=== PATIENT | female | born 1965 | race Two or more races ===

== ENCOUNTER 2018-11-02 10:26 | Inpatient (IN) | payer OTHER ==
[~2018-11-02] VITALS: Ht 160 cm; Wt 64.4 kg
[2018-11-02 10:40] VITALS: BP 132/79
--- NOTE | 2018-11-02 10:45 | NUR ---
ED Nurse Note: pt walked in to Ed due to wound on left hip. per pt, used to injected mineral oil for costmetic and got infected. has abscess on left hip for 4-5 months. had surgery 3 1/2 months ago. on home nursing care for wound. last one done on 5-6 days ago. due to insurance changes, unable to follow up with it. came with wound vac. foul smell noted. has a pain but tolerable. does not want to take pain meds. AAO x4. respirations even and non-labored noted. no fever or chills reported. will wait for the further order.
[2018-11-02] MEDS ORDERED: Piperacillin/Tazobactam 3.375 GM in NS 110 ML IVPB ONE (11:00)
[2018-11-02] MEDS ORDERED: Vancomycin 1 GM in NS 275 ML IV ONE (11:00)
[2018-11-02 11:26] LABS: BASOPHILS % (AUTO) 0.8 % (0.0-2.0); EOSINOPHILS % (AUTO) 2.8 % (0.0-3.0); HEMATOCRIT 41.4 % (37.0-47.0); HEMOGLOBIN 13.1 G/DL (12.0-16.0); LYMPHOCYTES % (AUTO) 21.7 % (20.0-45.0); MEAN CORPUSCULAR VOLUME 80 FL (80-99); MONOCYTES % (AUTO) 6.2 % (1.0-10.0); NEUTROPHILS % (AUTO) 68.6 % (45.0-75.0); PLATELET COUNT 277 K/UL (150-450); RED BLOOD COUNT 5.16 M/UL (4.20-5.40); RED CELL DISTRIBUTION WIDTH 12.7 % (11.6-14.8)
--- NOTE | 2018-11-02 11:36 | Emergency Room Report ---
History of Present Illness General Chief Complaint: Wound Recheck/Suture Removal Source: Patient Present Illness HPI Patient presents with left hip wound. She had surgery in May at [facility]. She had home wound care nurse that was canceled 6 days ago because of a change in insurance. She has a wound VAC. 2 months ago there was a separate abscess that burst. This is been draining. She has a change the dressing 3 times a day because of pus. She is not taking antibiotics that she was discharged from the hospital in May. She had a PICC line for several weeks and was receiving antibiotics by IV. This was discontinued. The patient denies any fevers or chills. 2 months ago she had increased pain and was unable to ambulate. This is improved with Tylenol. She is ambulatory at this time. She took Tylenol 2 days ago the last time. She also has a painful area of swelling R inner gluteal area. This hurts when she sits on it and when she wipes herself. The surgeon was initially going to drain this (in May) but then was not authorized to do so. She states the lesion initially occurred because she was injecting mineral oil into her skin. Patient denies hepatitis C or HIV. No fevers, chills, sore throat, chest pain, palpitations, nausea, vomiting, diarrhea, dysuria, abdominal pain, shortness of breath, pain, depression, anxiety, visual changes, headache. Her tetanus is current. Allergies: Coded Allergies: No Known Allergies (Unverified , 11/02/18) Patient History Past Medical History: see triage record Past Surgical History: other - Wound revision left hip Social History: Denies: smoking, alcohol use, drug use Social History Narrative Lives with partner born in [place] Last Menstrual Period: none Now: No Reviewed Nursing Documentation: PMH: Agreed; PSxH: Agreed Nursing Documentation-PMH Past Medical History: No Stated History Review of Systems All Other Systems: negative except mentioned in HPI Physical Exam Vital Signs Date Time Temp Pulse Resp B/P (MAP) Pulse Ox O2 Delivery O2 Flow Rate FiO2 11/02/18 10:34 98.4 86 20 132/79 (96) 99 Room Air Sp02 EP Interpretation: reviewed, normal General Appearance: well appearing, no apparent distress, GCS 15, non-toxic Head: normocephalic Eyes: bilateral eye normal inspection, bilateral eye PERRL, bilateral eye EOMI ENT: moist mucus membranes Neck: supple Respiratory: lungs clear, normal breath sounds Cardiovascular #1: regular rate, rhythm, no edema, other - venous disease LE Cardiovascular #2: 2+ radial (L) Gastrointestinal: normal inspection, normal bowel sounds, non tender, no mass, non-distended Genitourinary: no CVA tenderness, other - fluctuant area without erythema R inner gluteal area Musculoskeletal: back normal, gait/station normal, normal range of motion, no calf tenderness, pelvis stable, other - ROM normal of L hip Neurologic: alert, oriented x3, grossly normal Psychiatric: mood/affect normal Skin: other - L hip - wound vac present. Lesion below this draining, no fluctuance. Inflamed skin above that area Medical Decision Making Diagnostic Impression: Primary Impression: Abscess of left hip Additional Impressions: Cellulitis of left hip Gluteal seroma ER Course Patient presents with left hip infections. Differential includes abscess, cellulitis, chronic infection, osteomyelitis amongst others. Based on exam septic hip is doubted. Evaluation will be with EKG, chest x-ray, blood cultures , wound culture and labs. The patient agrees to take Tylenol. In addition to IV hydration will be started. After cultures obtained vancomycin and Zosyn will be given. Left hip with contrast is ordered. The right intergluteal lesion appears to be a seroma not an acute abscess however she is symptomatic with this. There is drainage that is significant from the lower left hip abscess. EKG without injury. Chest x-ray breast augmentation no infiltrates. Labs with normal white count however sedimentation rate and C-reactive protein are elevated. CMP unremarkable. CT without evidence of acute abscess however multiple injection granulomata. No evidence of osteomyelitis. Vancomycin and Zosyn begun. Patient needs admission for IV antibiotics and evaluation from revenue specialist. Contact and Dr. Quan. Insurance states will try to arrange for outpatient antibiotics and wound care. Patient improved and admitted to the hospital. Laboratory Tests Test 11/02/18 11:11 11/02/18 13:20 White Blood Count 7.0 K/UL (4.8-10.8) Red Blood Count 5.16 M/UL (4.20-5.40) Hemoglobin 13.1 G/DL (12.0-16.0) Hematocrit 41.4 % (37.0-47.0) Mean Corpuscular Volume 80 FL (80-99) Mean Corpuscular Hemoglobin 25.3 PG (27.0-31.0) L Mean Corpuscular Hemoglobin Concent 31.5 G/DL (32.0-36.0) L Red Cell Distribution Width 12.7 % (11.6-14.8) Platelet Count 277 K/UL (150-450) Mean Platelet Volume 6.2 FL (6.5-10.1) L Neutrophils (%) (Auto) 68.6 % (45.0-75.0) Lymphocytes (%) (Auto) 21.7 % (20.0-45.0) Monocytes (%) (Auto) 6.2 % (1.0-10.0) Eosinophils (%) (Auto) 2.8 % (0.0-3.0) Basophils (%) (Auto) 0.8 % (0.0-2.0) Erythrocyte Sedimentation Rate 88 MM/HR (0-30) H Prothrombin Time 10.4 SEC (9.30-11.50) Prothrombin Time INR 1.0 (0.9-1.1) PTT 30 SEC (23-33) Sodium Level 139 MMOL/L (136-145) Potassium Level 3.9 MMOL/L (3.5-5.1) Chloride Level 105 MMOL/L (98-107) Carbon Dioxide Level 28 MMOL/L (21-32) Anion Gap 6 mmol/L (5-15) Blood Urea Nitrogen 15 mg/dL (7-18) Creatinine 0.8 MG/DL (0.55-1.30) Estimate Glomerular Filtration Rate > 60 mL/min (>60) Glucose Level 108 MG/DL (74-106) H Lactic Acid Level 1.10 mmol/L (0.4-2.0) Calcium Level 9.1 MG/DL (8.5-10.1) Magnesium Level 2.1 MG/DL (1.8-2.4) Total Bilirubin 0.3 MG/DL (0.2-1.0) Aspartate Amino Transferase (AST) 24 U/L (15-37) Alanine Aminotransferase (ALT) 19 U/L (12-78) Alkaline Phosphatase 68 U/L (46-116) Total Creatine Kinase 57 U/L (26-308) Troponin I 0.000 ng/mL (0.000-0.056) C-Reactive Protein, Quantitative 5.1 mg/dL (0.00-0.90) H Pro-B-Type Natriuretic Peptide 125 pg/mL (0-125) Total Protein 8.2 G/DL (6.4-8.2) Albumin 3.1 G/DL (3.4-5.0) L Globulin 5.1 g/dL Albumin/Globulin Ratio 0.6 (1.0-2.7) L Urine Color Pale yellow Urine Appearance Clear Urine pH 7 (4.5-8.0) Urine Specific [place] 1.005 (1.005-1.035) Urine Protein Negative (NEGATIVE) Urine Glucose (UA) Negative (NEGATIVE) Urine Ketones Negative (NEGATIVE) Urine Blood Negative (NEGATIVE) Urine Nitrite Negative (NEGATIVE) Urine Bilirubin Negative (NEGATIVE) Urine Urobilinogen Normal MG/DL (0.0-1.0) Urine Leukocyte Esterase Negative (NEGATIVE) EKG Diagnostic Results Rate: normal Rhythm: NSR ST Segments: no acute changes Rhythm Strip Diag. Results EP Interpretation: yes Rhythm: NSR, no PVC's, no ectopy Chest X-Ray Diagnostic Results Chest X-Ray Diagnostic Results : Chest X-Ray Ordered: Yes # of Views/Limited/Complete: 1 View Indication: Other EP Interpretation: Yes Interpretation: no consolidation, no effusion, no pneumothorax Impression: No acute disease Electronically Signed by: Electronically signed by Jacques Resendez MD CT/MRI/US Diagnostic Results CT/MRI/US Diagnostic Results : Imaging Test Ordered: L hip Impression injection granulomata with chronic changes from wounds L. No Identified abscesses Last Vital Signs Date Time Temp Pulse Resp B/P (MAP) Pulse Ox O2 Delivery O2 Flow Rate FiO2 11/02/18 21:00 Room Air 11/02/18 20:00 98.6 72 18 119/63 (81 95 Status: improved Disposition: PLACE IN OBSERVATION Condition: Serious Scripts No Active Prescriptions or Reported Meds Referrals: ADRIANNE MATTSON,REFERRING (PCP) Jacques Resendez MD Nov 02, 2018 11:36
[2018-11-02 11:44] LABS: ANION GAP 6 mmol/L (5-15); BLOOD UREA NITROGEN 15 mg/dL (7-18); CALCIUM 9.1 MG/DL (8.5-10.1); CARBON DIOXIDE 28 MMOL/L (21-32); CHLORIDE 105 MMOL/L (98-107); CREATININE 0.8 MG/DL (0.55-1.30); POTASSIUM 3.9 MMOL/L (3.5-5.1); SODIUM 139 MMOL/L (136-145)
[2018-11-02 11:53] LABS: ALANINE AMINOTRANSFERASE 19 U/L (12-78); ALBUMIN 3.1 G/DL (3.4-5.0); ALBUMIN/GLOBULIN RATIO 0.6 (1.0-2.7); ALKALINE PHOSPHATASE 68 U/L (46-116); ASPARTATE AMINO TRANSFERASE 24 U/L (15-37); BILIRUBIN,TOTAL 0.3 MG/DL (0.2-1.0); CREATINE KINASE 57 U/L (26-308)
--- NOTE | 2018-11-02 12:00 | NUR ---
ED Nurse Note: pt lying in bed comfortably without facial grimacing or moaning noted. will wait for the room to be assigned.
--- NOTE | 2018-11-02 12:23 | Diagnostic Imaging Report ---
Indication: Dyspnea Comparison: None A single view chest radiograph was obtained. Findings: Cardiomediastinal appearance is within normal limits for age. The lungs are clear. Pulmonary vascularity is appropriate. The diaphragmatic contour is smooth and costophrenic angles are sharp. No pleural effusions are identified. The bones are unremarkable. Bilateral breast implants noted. Impression: No acute findings
[2018-11-02 13:30] VITALS: BP 121/77
--- NOTE | 2018-11-02 13:30 | NUR ---
ED Nurse Note: RN confirmed with Charge nurse that leave the wound vac as is. pic taken. will upload.
--- NOTE | 2018-11-02 13:44 | Diagnostic Imaging Report ---
Indication: Left hip drainage wound. Technique: continuous helical imaging in the transaxial plane was performed from the iliac crests to the pubic symphysis with attention to the left hip after intravenous nonionic contrast demonstration. Coronal 2-D reformatted images were also generated. Study obtained in a Siemens Sensation [address] total DLP: 615.2 mGycm CTD/vol: 11.69,14.38 mGy Comparison: None Findings: There is a large surgical defect along the left posterolateral gluteal region with a drain in place. There is extensive underlying heterogeneous soft tissue attenuation replacing the subcutaneous fatty tissue bilaterally. There are areas of intermixed high density that likely represent silicone. The findings suspicious for extensive foreign body granuloma formation in association with previous subcutaneous silicone injections. Please correlate with clinical history. There is no drainable abscess or fluid collection identified. There are bilateral inguinal nodes some containing high density. Within the pelvis itself, there is no free fluid or evidence of abscess. The osseous structures appear normal. There is no fracture identified. There is no joint effusion. There is no malalignment of the hips. IMPRESSION: Evidence of extensive bilateral gluteal region foreign body granuloma formation with multiple small radiopaque particles likely injected silica particles. No drainable abscess identified. Postsurgical defect noted on the left with a drain in place. The CT scanner at [facility] is accredited by the [employer] and the scans are performed using dose optimization techniques as appropriate to a performed exam including Automatic Exposure control.
[2018-11-02 13:49] LABS: APPEARANCE,URINE CLEAR; BILIRUBIN, URINE NEGATIVE (NEGATIVE); COLOR,URINE PALE YELLOW; GLUCOSE, URINE (UA) NEGATIVE (NEGATIVE); KETONES,URINE NEGATIVE (NEGATIVE); LEUKOCYTE ESTERASE ,URINE NEGATIVE (NEGATIVE); NITRITE,URINE NEGATIVE (NEGATIVE); PH,URINE 7 (4.5-8.0); PROTEIN,URINE NEGATIVE (NEGATIVE); UROBILINOGEN,URINE NORMAL MG/DL (0.0-1.0)
[2018-11-02] MEDS ORDERED: Albuterol/Ipratropium 3ml neb HHN PRN (14:15)
[2018-11-02] MEDS ORDERED: Dextrose 50% 25ml Syringe IV PRN (14:15)
[2018-11-02] MEDS ORDERED: Morphine Sulfate 2mg/ml Inj(IV/IM USE ONLY) IVP PRN (14:15)
[2018-11-02] MEDS ORDERED: Nitroglycerin Subl 0.4mg tab SL PRN (14:15)
[2018-11-02] MEDS ORDERED: Miralax 17gm pkt ORAL PRN (14:15)
--- NOTE | 2018-11-02 14:32 | NUR ---
report given to miah patient can be transferd to room 318-1 via [facility]
[2018-11-02 15:00] VITALS: BP 149/77
--- NOTE | 2018-11-02 15:00 | NUR ---
NURSE NOTES: Patient transferred from ED via Wheelchair, and received report from Jolly/RN, Patient is awake and alert, No sign of distress/SOB note. IV site intact, no bleeding or infiltration noted. Belonging check done. Patient stated having pain 4 out of 10. but refused to take pain medication. Bed in low position and locked, Call light and personal belonging within reach. Will continue plan of care.
[2018-11-02 16:00] VITALS: BP 118/76
--- NOTE | 2018-11-02 18:22 | Consultation ---
History of Present Illness General Date patient seen: Nov 02, 2018 Chief Complaint: Wound Recheck/Suture Removal Present Illness HPI 53 y/o F presented to ED on 11/02 with worsening L hip wound. Around May 2018, patient developed and ulcer after injecting mineral oil into her skin. She required surgery for this and was done at [facility]; discharge home with wound VAC and IV abx for several weeks through a pICC line; which were discontinued. She had home wound care but this was cancelled 6 days ago due to change in insurance. She has new area that popped (inferior to wound vac) and it is draining purulent material. She also had painful area of swelling in R inner gluteal area which hurts when she sits and when she wipes herself. Denied f/c,CP, n/v/d, abd pain. Allergies: Coded Allergies: No Known Allergies (Unverified , 11/02/18) Medication History No Active Prescriptions or Reported Meds Patient History Healthcare decision maker Resuscitation status Full Code Advanced Directive on File Patient History Narrative Pmhx: as above Shx: Denies: smoking, alcohol use, drug use. Lives with partner born in [place] Fhx: non contributory Review of Systems All Other Systems: negative except mentioned in HPI Physical Exam Physical Exam Narrative General Appearance: well appearing, no apparent distress, GCS 15 Head: normocephalic Eyes: bilateral eye normal inspection, bilateral eye PERRL, bilateral eye EOMI ENT: moist mucus membranes Neck: supple Respiratory: lungs clear, normal breath sounds Cardiovascular: regular rate, rhythm, no edema, other - venous disease LE Gastrointestinal: normal inspection, normal bowel sounds, non tender, no mass, non-distended Genitourinary: no CVA tenderness, other - fluctuant area without erythema R inner gluteal area Musculoskeletal: back normal, gait/station normal, normal range of motion, no calf tenderness, pelvis stable, other - ROM normal of L hip Neurologic: alert, oriented x3, grossly normal Psychiatric: mood/affect normal Skin: other - L hip - wound vac present. Lesion below this draining, no fluctuance. Inflamed skin above that area Last 24 Hour Vital Signs Date Time Temp Pulse Resp B/P (MAP) Pulse Ox O2 Delivery O2 Flow Rate FiO2 11/02/18 16:00 97.9 67 20 118/76 (90) 99 8/8/19 15:11 Room Air 11/02/18 15:00 97.9 70 24 149/77 (101) 99 11/02/18 14:34 98.2 76 18 120/70 98 Room Air 11/02/18 13:30 98.2 67 18 121/77 96 Room Air 11/02/18 10:45 86 20 Room Air 11/02/18 10:40 97.6 86 20 132/79 99 Room Air 11/02/18 10:34 98.4 86 20 132/79 (96) 99 Room Air Laboratory Tests Test 11/02/18 11:11 11/02/18 13:20 White Blood Count 7.0 K/UL (4.8-10.8) Red Blood Count 5.16 M/UL (4.20-5.40) Hemoglobin 13.1 G/DL (12.0-16.0) Hematocrit 41.4 % (37.0-47.0) Mean Corpuscular Volume 80 FL (80-99) Mean Corpuscular Hemoglobin 25.3 PG (27.0-31.0) L Mean Corpuscular Hemoglobin Concent 31.5 G/DL (32.0-36.0) L Red Cell Distribution Width 12.7 % (11.6-14.8) Platelet Count 277 K/UL (150-450) Mean Platelet Volume 6.2 FL (6.5-10.1) L Neutrophils (%) (Auto) 68.6 % (45.0-75.0) Lymphocytes (%) (Auto) 21.7 % (20.0-45.0) Monocytes (%) (Auto) 6.2 % (1.0-10.0) Eosinophils (%) (Auto) 2.8 % (0.0-3.0) Basophils (%) (Auto) 0.8 % (0.0-2.0) Erythrocyte Sedimentation Rate 88 MM/HR (0-30) H Prothrombin Time 10.4 SEC (9.30-11.50) Prothromb Time International Ratio 1.0 (0.9-1.1) Activated Partial Thromboplast Time 30 SEC (23-33) Sodium Level 139 MMOL/L (136-145) Potassium Level 3.9 MMOL/L (3.5-5.1) Chloride Level 105 MMOL/L (98-107) Carbon Dioxide Level 28 MMOL/L (21-32) Anion Gap 6 mmol/L (5-15) Blood Urea Nitrogen 15 mg/dL (7-18) Creatinine 0.8 MG/DL (0.55-1.30) Estimat Glomerular Filtration Rate > 60 mL/min (>60) Glucose Level 108 MG/DL (74-106) H Lactic Acid Level 1.10 mmol/L (0.4-2.0) Calcium Level 9.1 MG/DL (8.5-10.1) Magnesium Level 2.1 MG/DL (1.8-2.4) Total Bilirubin 0.3 MG/DL (0.2-1.0) Aspartate Amino Transf (AST/SGOT) 24 U/L (15-37) Alanine Aminotransferase (ALT/SGPT) 19 U/L (12-78) Alkaline Phosphatase 68 U/L (46-116) Total Creatine Kinase 57 U/L (26-308) Troponin I 0.000 ng/mL (0.000-0.056) C-Reactive Protein, Quantitative 5.1 mg/dL (0.00-0.90) H Pro-B-Type Natriuretic Peptide 125 pg/mL (0-125) Total Protein 8.2 G/DL (6.4-8.2) Albumin 3.1 G/DL (3.4-5.0) L Globulin 5.1 g/dL Albumin/Globulin Ratio 0.6 (1.0-2.7) L Urine Color Pale yellow Urine Appearance Clear Urine pH 7 (4.5-8.0) Urine Specific [place] 1.005 (1.005-1.035) Urine Protein Negative (NEGATIVE) Urine Glucose (UA) Negative (NEGATIVE) Urine Ketones Negative (NEGATIVE) Urine Blood Negative (NEGATIVE) Urine Nitrite Negative (NEGATIVE) Urine Bilirubin Negative (NEGATIVE) Urine Urobilinogen Normal MG/DL (0.0-1.0) Urine Leukocyte Esterase Negative (NEGATIVE) Height (Feet): 5 Height (Inches): 3.00 Weight (Pounds): 142 Medications Current Medications Medications (Trade) Dose Ordered Sig/[place] Route PRN Reason Start Time Stop Time Status Last Admin Dose Admin Acetaminophen (Tylenol) 650 mg Q4H PRN ORAL fever (temp > 100.5F) 11/02/18 14:15 12/02/18 14:14 Albuterol/ Ipratropium (Albuterol/ Ipratropium) 3 ml Q4H PRN HHN Shortness of Breath 11/02/18 14:15 11/07/18 14:14 Cefepime HCl 2 gm/ Dextrose 110 ml @ 220 mls/hr EVERY 12 HOURS IV 11/02/18 21:00 11/09/18 20:59 Dextrose (Dextrose 50%) 25 ml Q30M PRN IV Hypoglycemia 11/02/18 14:15 12/02/18 14:12 Dextrose (Dextrose 50%) 50 ml Q30M PRN IV Hypoglycemia 11/02/18 14:15 12/02/18 14:14 Heparin Sodium (Porcine) (Heparin 5000 units/ml) 5,000 units EVERY 12 HOURS SUBQ 11/02/18 21:00 12/02/18 20:59 Morphine Sulfate (Morphine Sulfate) 2 mg Q4H PRN IVP Moderate Pain (Pain Scale 4-6) 11/02/18 14:15 11/09/18 14:14 Nitroglycerin (Ntg) 0.4 mg Q5M PRN SL Prn Chest Pain 11/02/18 14:15 12/02/18 14:14 Ondansetron HCl (Zofran) 4 mg Q6H PRN IVP Nausea & Vomiting 11/02/18 14:15 12/02/18 14:14 Polyethylene Glycol (Miralax) 17 gm DAILYPRN PRN ORAL Constipation 11/02/18 14:15 12/02/18 14:14 Temazepam (Restoril) 15 mg HSPRN PRN ORAL Insomnia 11/02/18 14:15 11/09/18 14:14 Vancomycin HCl (Vanco rx to dose) 1 ea DAILY PRN MISC PER RX PROTOCOL 11/02/18 14:30 12/02/18 14:29 Vancomycin HCl 750 mg/Sodium Chloride 275 ml @ 183.333 mls/hr Q12HR@0000,1200 IVPB 11/03/18 00:00 11/08/18 00:00 Assessment/Plan Assessment/Plan: Abx: CEfepime 11/02- IV vancomycin 11/02- Zosynx 1 11/02 Assessment: Chronic L 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 No drainable abscess identified. Postsurgical defect noted on the left with a drain in place. -CRP 5.1, ESR 88 Afebrile No leukocytosis -u/a neg -CXR: No acute disease Plan: -Continue empiric IV Vancomycin and Cefepime pending wound cx -f/u cx -Monitor CBC/CMP, temperatures -Surgery eval -Obtain records at [facility] -ESR, CRP am -Sx eval Thank you for this consultation. Will continue to follow along with you. Discussed with GANESH. Shannan Graham M.D. Nov 02, 2018 18:22
--- NOTE | 2018-11-02 19:46 | NUR ---
HAND-OFF: Report given to Cathi/RN, Patient is awake, in stable condition. Endorsed plan of care.
[2018-11-02 20:00] VITALS: BP 119/63
[2018-11-02] MEDS: Cefepime HCl 2 GM in D5W 110 ML IV SCH (20:51)
[2018-11-02] MEDS: Heparin 5000 units/ml inj SUBQ SCH (20:52)
[2018-11-02] MEDS: Vancomycin 750mg/NS 275ml IVPB SCH ×2 (23:54)
--- NOTE | 2018-11-02 23:55 | Consultation ---
History of Present Illness General Date patient seen: Nov 02, 2018 Reason for Hospitalization: Wound Recheck/Suture Removal Present Illness HPI 53 year old female known to me from prior admission at an outside hospital. I first met her at [facility] when she presented with similar complaints. She had in the past injected mineral oil and potentially other substances into her hips and gluteal region for aesthetic purposes. Unfortunately it did not go well and she has since developed large areas of granulomatous scaring/wounds. She has had these for some time now and has had difficulty with definitive treatment as it is so extensive and would require a plastic surgeon with expertise in such complications for evaluation. I have her the number of two plastic surgeons but she states they do not take her insurance so she did not follow up. she states that she found a surgeon in [place] who was able to so a small excision and left a wound with wound vac in place. has been receiving care for vac via home health but her insurance ran out and has not had change or care in over 5 days. came to [facility] for eval. I was called to eval and assist with care. labs okay. CT noted. Allergies: Coded Allergies: No Known Allergies (Unverified , 11/02/18) Medication History No Active Prescriptions or Reported Meds Patient History History Provided By: Patient, Medical Record, PMD Healthcare decision maker Resuscitation status Full Code Advanced Directive on File Past Medical/Surgical History Past Medical/Surgical History: (1) Cellulitis of left hip (2) Abscess of left hip Review of Systems Review of Symptoms General ROS: no weight loss or fever Psychological ROS: no depression or mood changes, no memory loss Ophthalmic ROS: no visual changes or eye irritation ENT ROS: no nasal congestion, hearing loss, dizziness Allergy and Immunology ROS: no allergic symptoms or urticaria Hematological and Lymphatic ROS: no swollen glands, unusual bleeding or bruising Endocrine ROS: no polyuria, polydipsia, weight changes, temperature intolerance Respiratory ROS: no cough, shortness of breath, or wheezing Cardiovascular ROS: no chest pain or dyspnea on exertion Gastrointestinal ROS: denies abdominal pain, no bright red blood in stool. Musculoskeletal ROS: no myalgias or arthralgias Neurological ROS: no TIA or stroke symptoms Dermatological ROS: no new or changing skin lesions, rashes or pruritis Physical Exam Physical Exam General appearance: alert, cooperative, no distress, appears stated age Head: Normocephalic, without obvious abnormality, atraumatic Eyes: conjunctivae/corneas clear. PERRL, EOM's intact. Fundi benign Throat: Lips, mucosa, and tongue normal. Teeth and gums normal Neck: supple, symmetrical, trachea midline, no adenopathy, thyroid: not enlarged, symmetric, no tenderness/mass/nodules, no carotid bruit and no JVD Lungs: clear to auscultation bilaterally Heart: regular rate and rhythm, S1, S2 normal, no murmur, click, rub or gallop Abdomen: soft, non-tender. Bowel sounds normal. No masses, no organomegaly Extremities: extremities normal, atraumatic, no cyanosis or edema Pulses: 2+ and symmetric Skin: Skin color, texture, turgor normal. No rashes or lesions Neurologic: Grossly normal Last 24 Hour Vital Signs Date Time Temp Pulse Resp B/P (MAP) Pulse Ox O2 Delivery O2 Flow Rate FiO2 11/02/18 21:00 Room Air 11/02/18 20:00 98.6 72 18 119/63 (81) 95 11/02/18 16:00 97.9 67 20 118/76 (90) 99 11/02/18 15:11 Room Air 11/02/18 15:00 97.9 70 24 149/77 (101) 99 11/02/18 14:34 98.2 76 18 120/70 98 Room Air 11/02/18 13:30 98.2 67 18 121/77 96 Room Air 11/02/18 10:45 86 20 Room Air 11/02/18 10:40 97.6 86 20 132/79 99 Room Air 11/02/18 10:34 98.4 86 20 132/79 (96) 99 Room Air Laboratory Tests Test 11/02/18 11:11 11/02/18 13:20 White Blood Count 7.0 K/UL (4.8-10.8) Red Blood Count 5.16 M/UL (4.20-5.40) Hemoglobin 13.1 G/DL (12.0-16.0) Hematocrit 41.4 % (37.0-47.0) Mean Corpuscular Volume 80 FL (80-99) Mean Corpuscular Hemoglobin 25.3 PG (27.0-31.0) L Mean Corpuscular Hemoglobin Concent 31.5 G/DL (32.0-36.0) L Red Cell Distribution Width 12.7 % (11.6-14.8) Platelet Count 277 K/UL (150-450) Mean Platelet Volume 6.2 FL (6.5-10.1) L Neutrophils (%) (Auto) 68.6 % (45.0-75.0) Lymphocytes (%) (Auto) 21.7 % (20.0-45.0) Monocytes (%) (Auto) 6.2 % (1.0-10.0) Eosinophils (%) (Auto) 2.8 % (0.0-3.0) Basophils (%) (Auto) 0.8 % (0.0-2.0) Erythrocyte Sedimentation Rate 88 MM/HR (0-30) H Prothrombin Time 10.4 SEC (9.30-11.50) Prothromb Time International Ratio 1.0 (0.9-1.1) Activated Partial Thromboplast Time 30 SEC (23-33) Sodium Level 139 MMOL/L (136-145) Potassium Level 3.9 MMOL/L (3.5-5.1) Chloride Level 105 MMOL/L (98-107) Carbon Dioxide Level 28 MMOL/L (21-32) Anion Gap 6 mmol/L (5-15) Blood Urea Nitrogen 15 mg/dL (7-18) Creatinine 0.8 MG/DL (0.55-1.30) Estimat Glomerular Filtration Rate > 60 mL/min (>60) Glucose Level 108 MG/DL (74-106) H Lactic Acid Level 1.10 mmol/L (0.4-2.0) Calcium Level 9.1 MG/DL (8.5-10.1) Magnesium Level 2.1 MG/DL (1.8-2.4) Total Bilirubin 0.3 MG/DL (0.2-1.0) Aspartate Amino Transf (AST/SGOT) 24 U/L (15-37) Alanine Aminotransferase (ALT/SGPT) 19 U/L (12-78) Alkaline Phosphatase 68 U/L (46-116) Total Creatine Kinase 57 U/L (26-308) Troponin I 0.000 ng/mL (0.000-0.056) C-Reactive Protein, Quantitative 5.1 mg/dL (0.00-0.90) H Pro-B-Type Natriuretic Peptide 125 pg/mL (0-125) Total Protein 8.2 G/DL (6.4-8.2) Albumin 3.1 G/DL (3.4-5.0) L Globulin 5.1 g/dL Albumin/Globulin Ratio 0.6 (1.0-2.7) L Urine Color Pale yellow Urine Appearance Clear Urine pH 7 (4.5-8.0) Urine Specific [place] 1.005 (1.005-1.035) Urine Protein Negative (NEGATIVE) Urine Glucose (UA) Negative (NEGATIVE) Urine Ketones Negative (NEGATIVE) Urine Blood Negative (NEGATIVE) Urine Nitrite Negative (NEGATIVE) Urine Bilirubin Negative (NEGATIVE) Urine Urobilinogen Normal MG/DL (0.0-1.0) Urine Leukocyte Esterase Negative (NEGATIVE) Height (Feet): 5 Height (Inches): 3.00 Weight (Pounds): 142 Medications Current Medications Medications (Trade) Dose Ordered Sig/Kamille Route PRN Reason Start Time Stop Time Status Last Admin Dose Admin Acetaminophen (Tylenol) 650 mg Q4H PRN ORAL fever (temp > 100.5F) 11/02/18 14:15 12/02/18 14:14 Albuterol/ Ipratropium (Albuterol/ Ipratropium) 3 ml Q4H PRN HHN Shortness of Breath 11/02/18 14:15 11/07/18 14:14 Cefepime HCl 2 gm/ Dextrose 110 ml @ 220 mls/hr EVERY 12 HOURS IV 11/02/18 21:00 11/09/18 20:59 11/02/18 20:51 Dextrose (Dextrose 50%) 25 ml Q30M PRN IV Hypoglycemia 11/02/18 14:15 12/02/18 14:12 Dextrose (Dextrose 50%) 50 ml Q30M PRN IV Hypoglycemia 11/02/18 14:15 12/02/18 14:14 Heparin Sodium (Porcine) (Heparin 5000 units/ml) 5,000 units EVERY 12 HOURS SUBQ 11/02/18 21:00 12/02/18 20:59 11/02/18 20:52 Morphine Sulfate (Morphine Sulfate) 2 mg Q4H PRN IVP Moderate Pain (Pain Scale 4-6) 11/02/18 14:15 11/09/18 14:14 Nitroglycerin (Ntg) 0.4 mg Q5M PRN SL Prn Chest Pain 11/02/18 14:15 12/02/18 14:14 Ondansetron HCl (Zofran) 4 mg Q6H PRN IVP Nausea & Vomiting 11/02/18 14:15 12/02/18 14:14 Polyethylene Glycol (Miralax) 17 gm DAILYPRN PRN ORAL Constipation 11/02/18 14:15 12/02/18 14:14 Temazepam (Restoril) 15 mg HSPRN PRN ORAL Insomnia 11/02/18 14:15 11/09/18 14:14 Vancomycin HCl (Vanco rx to dose) 1 ea DAILY PRN MISC PER RX PROTOCOL 11/02/18 14:30 12/02/18 14:29 Vancomycin HCl 750 mg/Sodium Chloride 275 ml @ 183.333 mls/hr Q12HR@0000,1200 IVPB 11/03/18 00:00 11/08/18 00:00 Assessment/Plan Problem List: (1) Cellulitis of left hip Assessment & Plan: There is a large surgical defect along the left posterolateral gluteal region with a drain in place. There is extensive underlying heterogeneous soft tissue attenuation replacing the subcutaneous fatty tissue bilaterally. There are areas of intermixed high density that likely represent silicone. The findings suspicious for extensive foreign body granuloma formation in association with previous subcutaneous silicone injections. Please correlate with clinical history. There is no drainable abscess or fluid collection identified. There are bilateral inguinal nodes some containing high density. Within the pelvis itself, there is no free fluid or evidence of abscess. The osseous structures appear normal. There is no fracture identified. There is no joint effusion. There is no malalignment of the hips. IMPRESSION: Evidence of extensive bilateral gluteal region foreign body granuloma formation with multiple small radiopaque particles likely injected silica particles. No drainable abscess identified. Postsurgical defect noted on the left with a drain in place. No abscess on CT noted Exam with large extensive areas of hard and soft tissues in bilateral hips and buttocks. foul smelling wound vac noted. vac removed and wound cleaned with saline wet to dry packing initiated will work on getting her new home health care abx as per ID no acute surgical intervention planned thank you will follow with recs. ICD Codes: L03.116 - Cellulitis of left lower limb SNOMED: [id number] Sid Quan Nov 02, 2018 23:55
[2018-11-03] VITALS: BP 125/71
[2018-11-03] MEDS ORDERED: Vancomycin 1 GM in D5W 275 ML IV SCH (00:30)
[2018-11-03 04:34] VITALS: BP 10/71
--- NOTE | 2018-11-03 04:40 | NUR ---
NURSE NOTE: Pt is A/Ox4 with stable VS. Orders reviewed. Pt endorses a pain score of 4/10 but does not want PRN pain meds. Home wound vac at bedside, disposable canister discarded appropriately. IV is intact and patent. Pt does not have any complaints. Will continue to monito
[2018-11-03 06:43] LABS: BASOPHILS % (AUTO) 0.6 % (0.0-2.0); EOSINOPHILS % (AUTO) 5.8 % (0.0-3.0); HEMATOCRIT 37.9 % (37.0-47.0); HEMOGLOBIN 12.1 G/DL (12.0-16.0); LYMPHOCYTES % (AUTO) 27.9 % (20.0-45.0); MEAN CORPUSCULAR VOLUME 80 FL (80-99); MONOCYTES % (AUTO) 7.5 % (1.0-10.0); NEUTROPHILS % (AUTO) 58.2 % (45.0-75.0); PLATELET COUNT 252 K/UL (150-450); RED BLOOD COUNT 4.71 M/UL (4.20-5.40); RED CELL DISTRIBUTION WIDTH 12.6 % (11.6-14.8); WHITE BLOOD COUNT 6.5 K/UL (4.8-10.8)
[2018-11-03 07:11] LABS: ALANINE AMINOTRANSFERASE 16 U/L (12-78); ALBUMIN 2.8 G/DL (3.4-5.0); ALBUMIN/GLOBULIN RATIO 0.6 (1.0-2.7); ALKALINE PHOSPHATASE 62 U/L (46-116); ANION GAP 7 mmol/L (5-15); ASPARTATE AMINO TRANSFERASE 21 U/L (15-37); BILIRUBIN,TOTAL 0.2 MG/DL (0.2-1.0); BLOOD UREA NITROGEN 13 mg/dL (7-18); CALCIUM 8.7 MG/DL (8.5-10.1); CARBON DIOXIDE 27 MMOL/L (21-32); CHLORIDE 107 MMOL/L (98-107); CREATININE 0.7 MG/DL (0.55-1.30); SODIUM 141 MMOL/L (136-145)
--- NOTE | 2018-11-03 07:20 | NUR ---
HAND-OFF: Report given to GANESH Sheffield.
[2018-11-03 08:00] VITALS: BP 117/71
--- NOTE | 2018-11-03 08:03 | NUR ---
NURSE NOTES: Received report from Oscar Pimentel. Patient in bed awake and alert. NO c/o pain or discomfort. All safety precautions in place. call lucas within reach. will follow.
[2018-11-03] MEDS: Heparin 5000 units/ml inj SUBQ SCH (09:28)
[2018-11-03] MEDS: Cefepime HCl 2 GM in D5W 110 ML IV SCH (09:28)
--- NOTE | 2018-11-03 11:44 | Infectious Diseases Prog Note ---
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 No drainable abscess identified. Postsurgical defect noted on the left with a drain in place. -CRP 5.1, ESR 88 Afebrile No leukocytosis -u/a neg -CXR: No acute disease Plan: -Continue empiric IV Vancomycin and Cefepime #2 pending wound cx -11/02 SP Zosyn x1 -f/u cx -Monitor CBC/CMP, temperatures -Surgery eval -Obtain records at [facility] -Sx f/u Thank you for this consultation. Will continue to follow along with you. Discussed with RN. Subjective Allergies: Coded Allergies: No Known Allergies (Unverified , 11/02/18) Subjective afebrile no leukocytosis wound vac changed Objective Vital Signs Last 24 Hour Vital Signs Date Time Temp Pulse Resp B/P (MAP) Pulse Ox O2 Delivery O2 Flow Rate FiO2 11/03/18 09:00 Room Air 11/03/18 08:00 97.8 65 20 117/71 (86) 97 11/03/18 06:46 66 16 100 Room Air 21 11/03/18 04:34 97.9 64 18 10/71 (51) 98 11/03/18 00:00 98.4 74 20 125/71 (89) 95 11/02/18 21:00 Room Air 11/02/18 20:00 98.6 72 18 119/63 (81) 95 11/02/18 16:00 97.9 67 20 118/76 (90) 99 11/02/18 15:11 Room Air 11/02/18 15:00 97.9 70 24 149/77 (101) 99 11/02/18 14:34 98.2 76 18 120/70 98 Room Air 11/02/18 13:30 98.2 67 18 121/77 96 Room Air Height (Feet): 5 Height (Inches): 3.00 Weight (Pounds): 142 Objective General Appearance: well appearing, no apparent distress, GCS 15 Head: normocephalic Eyes: bilateral eye normal inspection, bilateral eye PERRL, bilateral eye EOMI ENT: moist mucus membranes Neck: supple Respiratory: lungs clear, normal breath sounds Cardiovascular: regular rate, rhythm, no edema, other - venous disease LE Gastrointestinal: normal inspection, normal bowel sounds, non tender, no mass, non-distended Genitourinary: no CVA tenderness, other - fluctuant area without erythema R inner gluteal area Musculoskeletal: back normal, gait/station normal, normal range of motion, no calf tenderness, pelvis stable, other - ROM normal of L hip Neurologic: alert, oriented x3, grossly normal Psychiatric: mood/affect normal Skin: other - L hip - wound vac present. Lesion below this draining, no fluctuance. Inflamed skin above that area Laboratory Tests Test 11/02/18 13:20 11/03/18 05:15 Urine Color Pale yellow Urine Appearance Clear Urine pH 7 (4.5-8.0) Urine Specific [place] 1.005 (1.005-1.035) Urine Protein Negative (NEGATIVE) Urine Glucose (UA) Negative (NEGATIVE) Urine Ketones Negative (NEGATIVE) Urine Blood Negative (NEGATIVE) Urine Nitrite Negative (NEGATIVE) Urine Bilirubin Negative (NEGATIVE) Urine Urobilinogen Normal MG/DL (0.0-1.0) Urine Leukocyte Esterase Negative (NEGATIVE) White Blood Count 6.5 K/UL (4.8-10.8) Red Blood Count 4.71 M/UL (4.20-5.40) Hemoglobin 12.1 G/DL (12.0-16.0) Hematocrit 37.9 % (37.0-47.0) Mean Corpuscular Volume 80 FL (80-99) Mean Corpuscular Hemoglobin 25.6 PG (27.0-31.0) L Mean Corpuscular Hemoglobin Concent 31.8 G/DL (32.0-36.0) L Red Cell Distribution Width 12.6 % (11.6-14.8) Platelet Count 252 K/UL (150-450) Mean Platelet Volume 6.1 FL (6.5-10.1) L Neutrophils (%) (Auto) 58.2 % (45.0-75.0) Lymphocytes (%) (Auto) 27.9 % (20.0-45.0) Monocytes (%) (Auto) 7.5 % (1.0-10.0) Eosinophils (%) (Auto) 5.8 % (0.0-3.0) H Basophils (%) (Auto) 0.6 % (0.0-2.0) Sodium Level 141 MMOL/L (136-145) Potassium Level 4.0 MMOL/L (3.5-5.1) Chloride Level 107 MMOL/L (98-107) Carbon Dioxide Level 27 MMOL/L (21-32) Anion Gap 7 mmol/L (5-15) Blood Urea Nitrogen 13 mg/dL (7-18) Creatinine 0.7 MG/DL (0.55-1.30) Estimat Glomerular Filtration Rate > 60 mL/min (>60) Glucose Level 91 MG/DL (74-106) Calcium Level 8.7 MG/DL (8.5-10.1) Total Bilirubin 0.2 MG/DL (0.2-1.0) Aspartate Amino Transf (AST/SGOT) 21 U/L (15-37) Alanine Aminotransferase (ALT/SGPT) 16 U/L (12-78) Alkaline Phosphatase 62 U/L (46-116) Total Protein 7.4 G/DL (6.4-8.2) Albumin 2.8 G/DL (3.4-5.0) L Globulin 4.6 g/dL Albumin/Globulin Ratio 0.6 (1.0-2.7) L Current Medications Medications (Trade) Dose Ordered Sig/Kamille Route PRN Reason Start Time Stop Time Status Last Admin Dose Admin Acetaminophen (Tylenol) 650 mg Q4H PRN ORAL fever (temp > 100.5F) 11/02/18 14:15 12/02/18 14:14 Albuterol/ Ipratropium (Albuterol/ Ipratropium) 3 ml Q4H PRN HHN Shortness of Breath 11/02/18 14:15 11/07/18 14:14 Cefepime HCl 2 gm/ Dextrose 110 ml @ 220 mls/hr EVERY 12 HOURS IV 11/02/18 21:00 11/09/18 20:59 11/03/18 09:28 Dextrose (Dextrose 50%) 25 ml Q30M PRN IV Hypoglycemia 11/02/18 14:15 12/02/18 14:12 Dextrose (Dextrose 50%) 50 ml Q30M PRN IV Hypoglycemia 11/02/18 14:15 12/02/18 14:14 Heparin Sodium (Porcine) (Heparin 5000 units/ml) 5,000 units EVERY 12 HOURS SUBQ 11/02/18 21:00 12/02/18 20:59 11/03/18 09:28 Morphine Sulfate (Morphine Sulfate) 2 mg Q4H PRN IVP Moderate Pain (Pain Scale 4-6) 11/02/18 14:15 11/09/18 14:14 Nitroglycerin (Ntg) 0.4 mg Q5M PRN SL Prn Chest Pain 11/02/18 14:15 12/02/18 14:14 Ondansetron HCl (Zofran) 4 mg Q6H PRN IVP Nausea & Vomiting 11/02/18 14:15 12/02/18 14:14 Polyethylene Glycol (Miralax) 17 gm DAILYPRN PRN ORAL Constipation 11/02/18 14:15 12/02/18 14:14 Temazepam (Restoril) 15 mg HSPRN PRN ORAL Insomnia 11/02/18 14:15 11/09/18 14:14 Vancomycin HCl (Vanco rx to dose) 1 ea DAILY PRN MISC PER RX PROTOCOL 11/02/18 14:30 12/02/18 14:29 Vancomycin HCl 750 mg/Sodium Chloride 275 ml @ 183.333 mls/hr Q12HR@0000,1200 IVPB 11/03/18 00:00 11/08/18 00:00 11/02/18 23:54 Shannan Graham M.D. Nov 03, 2018 11:44
[2018-11-03] MEDS: Vancomycin 750mg/NS 275ml IVPB SCH ×2 (11:58)
[2018-11-03 12:00] VITALS: BP 134/75
--- NOTE | 2018-11-03 12:39 | NUR ---
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 98.4 HR 86 RR 20 B/P 132/71 CXR= NEGATIVE LEFT HIP X-RAY=Evidence of extensive bilateral gluteal region foreign body granuloma formation with multiple small radiopaque particles likely injected silica particles. No drainable abscess identified. Postsurgical defect noted on the left with a drain in place. IS: IV BOULS NS X 2 LITERS VANCO IV ZOSYN IV ADMITTED TO MED/SURG @1501 MED/SURG STATUS DCP PENDING HOSPITAL STAY
[2018-11-03] MEDS ORDERED: Tubing IV Secondary IV ONE (14:45)
[2018-11-03] MEDS ORDERED: NS 275ml ONE (14:45)
--- NOTE | 2018-11-03 15:01 | Surgery Progress Note ---
Surgery Progress Note Subjective Additional Comments no acute events exam stable ambulatory tolerating diet labs okay Objective Last 24 Hour Vital Signs Date Time Temp Pulse Resp B/P (MAP) Pulse Ox O2 Delivery O2 Flow Rate FiO2 11/03/18 12:00 98.2 68 18 134/75 (94) 95 11/03/18 09:00 Room Air 11/03/18 08:00 97.8 65 20 117/71 (86) 97 11/03/18 06:46 66 16 100 Room Air 21 11/03/18 04:34 97.9 64 18 10/71 (51) 98 11/03/18 00:00 98.4 74 20 125/71 (89) 95 11/02/18 21:00 Room Air 11/02/18 20:00 98.6 72 18 119/63 (81) 95 11/02/18 16:00 97.9 67 20 118/76 (90) 99 11/02/18 15:11 Room Air 11/02/18 15:00 97.9 70 24 149/77 (101) 99 I&O Intake and Output 11/02/18 11/03/18 19:00 07:00 Intake Total 230 ml Balance 230 ml Intake Oral 120 ml IV Total 110 ml # Voids 5 3 # Bowel Movements 1 Dressing: saturated Wound: other Drains: other Respiratory: clear Abdomen: soft, present bowel sounds, non-distended Extremities: no cyanosis, other Laboratory Tests Test 11/03/18 05:15 White Blood Count 6.5 K/UL (4.8-10.8) Red Blood Count 4.71 M/UL (4.20-5.40) Hemoglobin 12.1 G/DL (12.0-16.0) Hematocrit 37.9 % (37.0-47.0) Mean Corpuscular Volume 80 FL (80-99) Mean Corpuscular Hemoglobin 25.6 PG (27.0-31.0) L Mean Corpuscular Hemoglobin Concent 31.8 G/DL (32.0-36.0) L Red Cell Distribution Width 12.6 % (11.6-14.8) Platelet Count 252 K/UL (150-450) Mean Platelet Volume 6.1 FL (6.5-10.1) L Neutrophils (%) (Auto) 58.2 % (45.0-75.0) Lymphocytes (%) (Auto) 27.9 % (20.0-45.0) Monocytes (%) (Auto) 7.5 % (1.0-10.0) Eosinophils (%) (Auto) 5.8 % (0.0-3.0) H Basophils (%) (Auto) 0.6 % (0.0-2.0) Sodium Level 141 MMOL/L (136-145) Potassium Level 4.0 MMOL/L (3.5-5.1) Chloride Level 107 MMOL/L (98-107) Carbon Dioxide Level 27 MMOL/L (21-32) Anion Gap 7 mmol/L (5-15) Blood Urea Nitrogen 13 mg/dL (7-18) Creatinine 0.7 MG/DL (0.55-1.30) Estimat Glomerular Filtration Rate > 60 mL/min (>60) Glucose Level 91 MG/DL (74-106) Calcium Level 8.7 MG/DL (8.5-10.1) Total Bilirubin 0.2 MG/DL (0.2-1.0) Aspartate Amino Transf (AST/SGOT) 21 U/L (15-37) Alanine Aminotransferase (ALT/SGPT) 16 U/L (12-78) Alkaline Phosphatase 62 U/L (46-116) Total Protein 7.4 G/DL (6.4-8.2) Albumin 2.8 G/DL (3.4-5.0) L Globulin 4.6 g/dL Albumin/Globulin Ratio 0.6 (1.0-2.7) L Plan Problems: (1) Cellulitis of left hip Assessment & Plan: There is a large surgical defect along the left posterolateral gluteal region with a drain in place. There is extensive underlying heterogeneous soft tissue attenuation replacing the subcutaneous fatty tissue bilaterally. There are areas of intermixed high density that likely represent silicone. The findings suspicious for extensive foreign body granuloma formation in association with previous subcutaneous silicone injections. Please correlate with clinical history. There is no drainable abscess or fluid collection identified. There are bilateral inguinal nodes some containing high density. Within the pelvis itself, there is no free fluid or evidence of abscess. The osseous structures appear normal. There is no fracture identified. There is no joint effusion. There is no malalignment of the hips. IMPRESSION: Evidence of extensive bilateral gluteal region foreign body granuloma formation with multiple small radiopaque particles likely injected silica particles. No drainable abscess identified. Postsurgical defect noted on the left with a drain in place. No abscess on CT noted Exam with large extensive areas of hard and soft tissues in bilateral hips and buttocks. foul smelling wound vac noted. vac removed and wound cleaned with saline wet to dry packing initiated abx as per ID; transition to oral for d/c no acute surgical intervention planned wet to dry dressings until outpatient follow up with her PCP or clinic for initiation of wound VAC and continued outpatient wound care discussed in detail with patient. she needs to make sure to have established outpatient care as this is a chronic issue and will need residential care okay to d/c from surgical standpoint thank you will follow with recs. Sid Quan Nov 03, 2018 15:01
[2018-11-03] MEDS ORDERED: BACTRIM DS TAB1 EAC1 ORAL (15:20)
[2018-11-03] MEDS ORDERED: LEVAQUIN500 MG ORAL (15:20)
[2018-11-03 16:00] VITALS: BP 156/93
--- NOTE | 2018-11-03 16:21 | History & Physical ---
History and Physical History & Physicial Leonel Hui MD Nov 03, 2018 16:21
--- NOTE | 2018-11-03 16:46 | NUR ---
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 No drainable abscess identified. Postsurgical defect noted on the left with a drain in place. CXR: Negative IS: Vancomycin NS 1000 Zosyn Tylenol NS 1000 Admitted to Med Surg Med Surg status DCP: Pending Hospital Stay
--- NOTE | 2018-11-03 18:14 | NUR ---
NURSE NOTES: Patient discharge to home as per MD's order. Dr. Kincaid/Kadeem/Gladys/Ez saw patient rior to discharge. Patient stable, Discussed meds/ Discharge instructions verbalizes understanding. VSS no c/o pain or discomfort. LEft floor ambulating with steady gait. All belongings taken by patients. supplies for wound care given to patient.
--- NOTE | 2018-11-04 03:30 | History and Physical Report ---
DATE OF ADMISSION: 11/02/2018 CHIEF COMPLAINT: Left hip infection. HISTORY OF PRESENT ILLNESS: This is a 53-year-old female with past medical history significant for left hip wound status post wound VAC after he had a silicone injection to the left hip. Shortly after initial evaluation in the emergency room, the patient was admitted to the hospital with left gluteal infection. PAST MEDICAL HISTORY/PAST SURGICAL HISTORY: As above. History of injection of mineral oil and silicone to the left gluteal area for anesthetic purpose. She developed a large area of granulation and scar wound. The patient subsequently on wound VAC and follows up with plastic surgery. MEDICATIONS: At home, please refer to medication reconciliation. ALLERGIES: No known drug allergies. SOCIAL HISTORY: Denies any smoking, alcohol, or drugs. FAMILY HISTORY: Noncontributory. REVIEW OF SYSTEMS: Mostly as above. No fever or chills. No nausea or vomiting. PHYSICAL EXAMINATION: VITAL SIGNS: On admission, temperature 98.6, pulse of 72, respirations 18, and blood pressure 111/63. GENERAL: The patient is awake and responsive, in no acute distress. HEAD AND NECK: Pupils are reactive to light. Extraocular movements intact. NECK: Supple. No JVD. LUNGS: Good air entry. No wheezing or rales. HEART: S1 and S2. Regular rate and rhythm. No gallops. ABDOMEN: Soft, nondistended, and nontender. Positive bowel sounds. EXTREMITIES: Hip has a wet and dry wound with clear . No sign of pus discharges. NEUROLOGIC: MACHINERY ERECTOR II through XII grossly intact. Motor is 5/5 in all extremities. Gait is intact. RECTAL/GENITOURINARY: Refused and deferred. PSYCHIATRIC: Mood and affect are intact. LABORATORY DATA: On admission was noted to be WBC of 7.0, hemoglobin 13, hematocrit 41, and platelets 277,000. Sodium 139, potassium 3.9, chloride 105, bicarb 28, BUN 15, and creatinine 0.8. Troponin less than 0.00. ProBNP of 125. PT of 10, INR 1.0, and PTT of 30. Urine analysis negative. Urine culture pending. The patient had CT of the hip, noted to have evidence of extensive bilateral gluteal region foreign body, granuloma formation with multiple small radiopaque particles, likely injected silicone particle. No drainage or abscess identified, postsurgical defect noted on the left with drain in place. ASSESSMENT: Left hip gluteal chronic wound. PLAN: 1. Admit the patient to med/surg. 2. We will follow up with Dr. Kadeem caldwell, who has seen this patient in the past, knows the patient from prior admission. 3. Follow up with Dr. Graham from Infectious Disease. 4. Code status is Full Code. 5. DVT prophylaxis with heparin subcutaneous. 6. Consider the patient discharge home to follow up with plastic surgery for outpatient wound management and wound VAC. Leonel Hui M.D. DR: BASILIA JOB#: [id number] CC:
--- NOTE | 2018-11-04 08:33 | Discharge Summary ---
Discharge Summary Discharge Summary _ DATE OF ADMISSION: 11/02/2018 DATE OF DISCHARGE: 11/03/2018 ATTENDING MD: Dr. Leonel Hui CONSULTANTS: Dr. Sid Graham BRIEF HOSPITAL COURSE: Patient is a 53-year-old female with past medical history significant for left hip wound status post wound after he had a silicone injection to the left hip. She developed a large area of granulation and scar wound. She was recommended evaluation of plastic surgeon, however, due to insurance was not able to be seen. She eventually found a surgeon at [place] was able to do a small incision and left a wound with wound VAC in place. She has been receiving care for the wound VAC at home via home health, however, insurance ran out, and she has not had a change or care in over 5 days. She presented to ED for further evaluation. She complained of pain in the right inner gluteal area. She denies any fever or chills. No sore throat, chest pain, palpitation, nausea, vomiting or diarrhea, no dysuria, abdominal pain, shortness of breath. Evaluation at the ED revealed WBC 7.0, hemoglobin 13, hematocrit 41, platelets 277,000. Sodium 139, potassium 3.9, chloride 105, bicarb 28, BUN 15 and creatinine 0.8. Troponin less than 0.00. proBNP of 125. PT of 10, INR 1.0 and PTT of 30. CRP elevated to 5.1. Urine analysis negative. The patient had CT of the hip, and was noted to have evidence of extensive bilateral gluteal region foreign body, granuloma formation with multiple small radiopaque particles, likely injected silicone particle. No drainage or abscess identified , postsurgical defect noted on the left with a drain in place. She was cultured. She was started on IV vancomycin and Zosyn. She was admitted to medical floor for evaluation of the left hip gluteal wound. Surgeon and ID were consulted. CT results were reviewed. There was no abscess noted on CT. She was continued on IV vancomycin and cefepime. Examination showed a large extensive area of hard and soft tissue in bilateral hips and buttocks. Foul-smelling wound VAC noted. Wound VAC was removed and wound care was provided. Per surgeon, there was no acute surgical intervention needed. Venous duplex of the lower extremity was negative for acute DVT. Blood culture did not isolate any growth. Wound culture showed growth of Staphylococcus and diphteroids. Patient was eventually discharged home to follow-up with plastic surgery for outpatient wound management and wound vac. FINAL DIAGNOSES: Cellulitis of the left hip Chronic ledt ihp ound on wound vac s/p surgery May 2018 DISPOSITION: Patient was discharged home. DISCHARGE MEDICATIONS: Refer to Discharge Medication List. Continue oral antibiotics. DISCHARGE INSTRUCTIONS: Follow-up in a week. I have been assigned to complete a discharge summary on this account, I was not involved with the patient's management.--MINH Washburn Jacqueline Robles NP Nov 04, 2018 08:33
--- NOTE | 2018-11-05 11:57 | NUR ---
CASE MANAGEMENT: CM review and clinical information (face sheet/ ER MD notes/ H&P/DC summary) faxed to NORY/LUCY @ [phone].
== END 2018-11-03 18:24 | disposition home or self-care (01) | DRG 383 ==
LOC: EMR 10:54 → 3E 12:51 → EDBEDREQ 13:02 → 3E 14:49 → OBSVTOIN 15:49
DX: L03.116 Cellulitis of left lower limb (principal); L02.31 Cutaneous abscess of buttock; M60.28 Foreign body granuloma of soft tissue, not elsewhere classified, other site; Z18.89 Other specified retained foreign body fragments
CPT/HCPCS: 36415; 71045; 80053; 81003; 82550; 83605; 83735; 83880; 84484; 85025; 85610; 85651; 85730; 86140; 87040; 87070; 87181; 87205; 93005; 93970; 94664; 96361; 96365; 96368; 99285